=== PATIENT | male | born 1995 | race Caucasian/White ===

== ENCOUNTER 2020-09-25 16:56 | Emergency (ER) | payer OTHER ==
[~2020-09-25] VITALS: Ht 170.2 cm; Wt 77.1 kg
[~2020-09-25 16:56] MED LIST: FLEXERIL PO; NOHOMEMEDICATIONS
[2020-09-25 18:06] VITALS: BP 138/72
== END 2020-09-25 18:07 | disposition home or self-care (01) ==
LOC: M.ERS 16:56
DX: Z20.828 Contact with and (suspected) exposure to other viral communicable diseases (principal)